=== PATIENT | female | born 1965 | race American Indian/Alaskan Native ===

== ENCOUNTER 2017-11-21 17:58 | Inpatient (IN) | payer SELFPAY ==
[2017-11-21] MEDS ORDERED: ASPIRIN PO ONE (18:46)
[2017-11-21 19:08] LABS: Basophils % (Auto) 0.6 % (0.0-1.8); Eosinophils # (Auto) 0.1 K/mm3 (0.0-0.4); Hematocrit 42.1 % (30.3-42.9); Hemoglobin 14.5 gm/dl (10.1-14.3); Lymphocytes # (Auto) 2.5 K/mm3 (1.2-5.4); Lymphocytes % (Auto) 33.2 % (13.4-35.0); Mean Corpuscular HGB Conc 35 % (30-34); Mean Corpuscular Hemoglobin 34 pg (28-32); Mean Corpuscular Volume 97 fl (79-97); Monocytes # (Auto) 0.5 K/mm3 (0.0-0.8); Monocytes % (Auto) 6.5 % (0.0-7.3); Platelet Count 237 K/mm3 (140-440); Red Blood Count 4.34 M/mm3 (3.65-5.03); Red Cell Distribution Width 12.2 % (13.2-15.2)
[2017-11-21 19:25] LABS: BUN/Creatinine Ratio 22; Blood Urea Nitrogen 11 mg/dL (7-17); Calcium 9.5 mg/dL (8.4-10.2); Hemolysis Index 5
[2017-11-21] MEDS ORDERED: ZOFRAN IV ONE (21:00)
[2017-11-21] MEDS ORDERED: MORPHINE IV ONE (21:00)
[2017-11-21] MEDS ORDERED: NITRO-BID 2% TP ONE (21:00)
--- NOTE | 2017-11-21 21:05 | Emergency Department Report ---
HPI - General Chief Complaint: Chest Pain Time Seen by Provider: 11/21/17 20:51 - HPI HPI: Hart 5 The patient is a 52-year-old female presented with a chief complaint of chest pain. The patient states at work she began having pain in her back then the pain began to radiate down to her shoulder and into her chest described as a pressure in nature. Patient states she developed a headache became diaphoretic and experienced nausea and vomiting. The patient states she has slight shortness of breath with this pain. The patient currently gets her pain is score of 10/10. The patient states her last stress test was over 5 years ago and she's never had a cardiac catheterization Location: [See above] Duration: Onset around noon Quality: Pressure Severity: 10/10 Modifying factors: [see above] Context: [see above] Mode of transportation: [not driving] ED Past Medical Hx - Past Medical History Hx Hypertension: Yes - Surgical History Hx Cholecystectomy: Yes Hx Appendectomy: Yes Additional Surgical History: bowel resection r/t CA, back surgery, - Family History Family history: no significant - Social History Smoking Status: Never Smoker Substance Use Type: Alcohol (wine daily) ED Review of Systems ROS: Stated complaint: CHEST PAIN Other details as noted in HPI Constitutional: diaphoresis Eyes: denies: eye pain ENT: denies: throat pain Respiratory: shortness of breath Cardiovascular: chest pain Endocrine: no symptoms reported Gastrointestinal: nausea, vomiting Genitourinary: denies: dysuria Musculoskeletal: back pain Neurological: headache Physical Exam - Physical Exam Vital Signs: Vital Signs 11/21/17 11/21/17 18:39 20:45 Temperature 97.7 F Pulse Rate 84 76 Respiratory 18 16 Rate Blood Pressure 168/119 Blood Pressure 151/114 [Left] O2 Sat by Pulse 98 98 Oximetry Physical Exam: GENERAL: The patient is well-developed well-nourished female lying on stretcher appearing to be in mild discomfort. [] HEENT: Normocephalic. Atraumatic. Extraocular motions are intact. Patient has moist mucous membranes. NECK: Supple. Tenderness to the base of the neck. No region of fluctuance or lipoma palpated CHEST/LUNGS: Clear to auscultation. There is no respiratory distress noted. HEART/CARDIOVASCULAR: Regular. There is no tachycardia. There is no gallop rub or murmur. ABDOMEN: Abdomen is soft, nontender. Patient has normal bowel sounds. There is no abdominal distention. SKIN: There is no rash. There is no edema. There is no diaphoresis. NEURO: The patient is awake, alert, and oriented. The patient is cooperative. The patient has normal speech MUSCULOSKELETAL: There is tenderness to the C7 spinous process region. There is no evidence of acute injury. ED Course Vital Signs 11/21/17 11/21/17 18:39 20:45 Temperature 97.7 F Pulse Rate 84 76 Respiratory 18 16 Rate Blood Pressure 168/119 Blood Pressure 151/114 [Left] O2 Sat by Pulse 98 98 Oximetry ED Medical Decision Making - Lab Data Result diagrams: 11/21/17 18:54 11/21/17 18:54 Laboratory Tests 11/21/17 11/21/17 18:54 18:54 WBC 7.4 RBC 4.34 Hgb 14.5 H Hct 42.1 MCV 97 MCH 34 H MCHC 35 H RDW 12.2 L Plt Count 237 Lymph % (Auto) 33.2 [place] % (Auto) 6.5 Eos % (Auto) 1.0 Baso % (Auto) 0.6 Lymph # 2.5 [place] # 0.5 Eos # 0.1 Baso # 0.0 Seg Neutrophils % 58.7 Seg Neutrophils # 4.3 Sodium 140 Potassium 2.9 L* Chloride 100.3 Carbon Dioxide 25 Anion Gap 18 BUN 11 Creatinine 0.5 L Estimated GFR > 60 BUN/Creatinine Ratio 22 Glucose 81 Calcium 9.5 Troponin T < 0.010 - EKG Data -: EKG Interpreted by Me EKG shows normal: sinus rhythm Rate: normal - EKG Data When compared to previous EKG there are: previous EKG unavailable Interpretation: other (frequent PVCs) - Radiology Data Radiology results: image reviewed (chest x-ray) interpreted by me: Chest x-ray-no focal infiltrates, no pneumothorax. Possible left lower lobe pulmonary nodule - Differential Diagnosis ACS, pericarditis, GERD, musculoskeletal pain Critical care attestation.: If time is entered above; I have spent that time in minutes in the direct care of this critically ill patient, excluding procedure time. ED Disposition Clinical Impression: Chest pain, Pulmonary nodule Disposition: OP ADMIT IP TO THIS HOSP Is pt being admited?: Yes Does the pt Need Aspirin: Yes Condition: Fair Instructions: Chest Pain (ED) Time of Disposition: 21:40 (hospitalist paged (Dr Howe))
[2017-11-21] MEDS ORDERED: K-DUR PO ONE (21:06)
--- NOTE | 2017-11-21 21:42 | XRay Report ---
FINAL REPORT PROCEDURE: XR CHEST 1V AP TECHNIQUE: Chest radiograph anteroposterior view. CPT 93142 HISTORY: chest pain COMPARISON: No prior studies are available for comparison. FINDINGS: Heart: Normal. Mediastinum/Vessels: Normal. Lungs/Pleural space: No focal infiltrate. Left lower lung granuloma. No pleural effusion.. Bony thorax: Degenerative change of the spine.. Life support devices: None. IMPRESSION: No acute cardiopulmonary abnormality.
[2017-11-21] MEDS ORDERED: PROTONIX PO SCH (23:00)
[2017-11-21] MEDS ORDERED: ZOFRAN IV PRN (23:14)
[2017-11-21] MEDS ORDERED: TYLENOL PO PRN (23:15)
[2017-11-22] MEDS: MORPHINE IV PRN ×3 (00:57→20:32)
[2017-11-22 01:15] LABS: Creatine Kinase MB 1.1 ng/mL (0.0-4.0)
[2017-11-22] MEDS: NITRO-BID 2% TP SCH ×4 (05:06→18:22)
--- NOTE | 2017-11-22 05:28 | History and Physical Report ---
CHIEF COMPLAINT: Chest pain. Other complaint include pain in the cervical area in the back of the neck. HISTORY OF PRESENT ILLNESS: The patient is a 52-year-old female who stated she started having pain in the back of her neck while at work and the pain started radiating to the shoulder area, and later on, the patient developed pressure sensation in the chest. There was also a history of headache, diaphoresis as well as nausea and vomiting. The patient also described history of shortness of breath occurring with pain and rated the pain in the chest area as level of 10/10. PAST MEDICAL HISTORY: Pertinent for hypertension. PAST SURGICAL HISTORY: Pertinent for cholecystectomy, appendectomy, bowel resection, back surgery and . FAMILY HISTORY: Noncontributory. SOCIAL HISTORY: The patient drinks alcohol and does not smoke cigarettes and does not use illicit drugs. MEDICATIONS: The patient's home medications include amlodipine 10 mg by mouth daily, atenolol 50 mg by mouth daily, hydrochlorothiazide 25 mg by mouth daily and the patient is also on omeprazole 20 mg by mouth daily. ALLERGIES: THE PATIENT IS ALLERGIC TO CIPROFLOXACIN. REVIEW OF SYSTEMS: CONSTITUTIONAL: There is no fever, there are no chills, but there is diaphoresis. HEENT: There is headache, but no sore throat. CARDIOVASCULAR: Chest pain is present. No orthopnea. RESPIRATORY: Shortness of breath is present with no cough. GASTROINTESTINAL: There is nausea and vomiting, but no abdominal pain, no diarrhea or constipation. NEUROLOGICAL SYSTEM: There is no numbness, no dizziness, no altered mental status. MUSCULOSKELETAL: Pain in the cervical area at the back of the neck present. There is no joint swelling. DERMATOLOGICAL: There is no skin rash or itching. GENITOURINARY: There is no dysuria, hematuria or flank pain. Rest of system review is normal. PHYSICAL EXAMINATION: GENERAL: At the time of exam, the patient was found to be alert, oriented x 3 and in mild distress due to pain in both the chest and the cervical area. VITAL SIGNS: At the time of initial presentation shows temperature of 97.7 degrees Fahrenheit, pulse of 84, respirations 18, blood pressure 168/119, O2 sat of 98% on room air. HEENT: Pupils to be equal, round, reactive to light and accommodating. Extraocular muscles are intact. NECK: Supple with no JVD or carotid bruit. CARDIOVASCULAR: Showed normal first and second heart sounds with no gallops or murmur. RESPIRATORY SYSTEM: Show good air entry on both sides of the lungs with no abnormal breath sounds. GASTROINTESTINAL SYSTEM: Show abdomen to be full, soft, nontender with no organomegaly or rigidity. NEUROLOGIC: Shows no focal deficit. MUSCULOSKELETAL SYSTEM: Showed tenderness in the cervical area and adjacent right shoulder area with no joint swelling noted. DERMATOLOGICAL SYSTEM: Show no skin rash. GENITOURINARY: Show no costovertebral angle tenderness. PERTINENT LABORATORY AND IMAGING STUDIES: The patient had chest x-ray done that shows no acute cardiopulmonary lesion. The patient's lab results shows CBC with normal white count, elevated hemoglobin of 14.5, normal hematocrit and normal MCV with unremarkable CBC differential. The patient's chemistry showed low potassium level of 2.9 with the rest of chemistry being unremarkable and troponin level was normal. DIAGNOSES: 1. Chest pain, rule out myocardial infarction. 2. Hypokalemia, low potassium. 3. Cervicalgia. PLAN OFACTION: 1. The patient will be admitted to telemetry. 2. The patient will remain n.p.o. and we will have Lexiscan stress test this morning. 3. The patient will have cardiac enzyme involving troponin, total CK and CK-MB checked q. 6 hours x 2 more levels. 4. The patient will have CT scan without contrast of the cervical area at the back of the neck this morning. 5. The patient will be on Tylenol 650 mg by mouth every 4 hours for fever and headache and will be on IV morphine 2 mg every 3 hours as needed for pain. 6. The patient will be on nitro paste half inch to anterior chest wall q.i.d. and will also be on IV Zofran 4 mg every 8 hours as needed for nausea and vomiting. The patient will be on aspirin 325 mg by mouth daily and DVT prophylaxis will be through heparin 5000 units subcutaneous q. 12 hours. The patient will be on oxygen by nasal cannula at 2 liter per minute and will be on Tylenol 650 mg by mouth every 4 hours for fever and headache. JOB# [id number] OCN/NTS
[2017-11-22 06:30] LABS: Creatine Kinase MB 1.1 ng/mL (0.0-4.0)
[2017-11-22] MEDS: NORVASC PO SCH (09:09)
--- NOTE | 2017-11-22 09:12 | Cat Scan Report ---
FINAL REPORT EXAM: CT CERVICAL SPINE WO CON HISTORY: PAIN WITH TENDERNESS CERVICAL AREA TECHNIQUE: A noncontrast CT of the cervical spine was performed. Coronal and sagittal reformatted images were obtained. PRIORS: None. FINDINGS: Vertebral body heights and alignment are maintained. There is no evidence of acute fracture. There is C5-6 moderate intervertebral narrowing. There is moderate endplate spurring. Disc osteophyte complex causes mild spinal stenosis and left neuroforaminal narrowing. IMPRESSION: Moderate degenerative disc disease at C5-6 with disc osteophyte complex causing mild spinal stenosis and mild left neuroforaminal narrowing. There is no evidence of cervical spine fracture or subluxation.
[2017-11-22] MEDS: TENORMIN PO SCH (09:53)
[2017-11-22] MEDS ORDERED: HCTZ PO SCH (10:00)
[2017-11-22] MEDS ORDERED: NORCO 5/325 PO PRN (11:00)
[2017-11-22] MEDS ORDERED: LEXISCAN IV ONE ×2 (12:05→12:09)
[2017-11-22] MEDS: PROTONIX PO SCH ×2 (14:30→18:20)
[2017-11-22] MEDS: HEPARIN SUB-Q SCH ×2 (15:01→21:26)
[2017-11-22] MEDS: ASPIRIN PO SCH (15:02)
--- NOTE | 2017-11-22 16:33 | Progress Note ---
Assessment and Plan Assessment and plan: Chest pain, rule out ACS -Serial troponin levels negative -Stress test report pending Cervical pain -Cervical CT scan showed degenerative disc disease C5 to C6 -Continue pain mgx Hypokalemia -Improved after repletion, will monitor -Magnesium level normal Disposition: For discharge in a.m. if stress test is negative History Interval history: Patient has no new complaints. She denies current chest pain or shortness of breath. Hospitalist Physical - Constitutional Vitals: Temp Pulse Resp BP Pulse Ox 97 F L 77 18 128/97 96 11/22/17 14:42 11/22/17 15:39 11/22/17 14:42 11/22/17 15:10 11/22/17 08:51 General appearance: Present: no acute distress - EENT Eyes: Present: PERRL, EOM intact ENT: hearing intact, clear oral mucosa - Neck Neck: Present: supple - Respiratory Respiratory effort: normal Respiratory: bilateral: CTA - Cardiovascular Rhythm: regular Heart Sounds: Present: S1 & S2 - Extremities Extremities: No edema - Abdominal General gastrointestinal: soft, non-tender, normal bowel sounds - Neurologic Neurologic: CNII-XII intact Results - Labs CBC & Chem 7: 11/21/17 18:54 11/22/17 04:58 Labs: Laboratory Last Values WBC 7.4 K/mm3 (4.5-11.0) 11/21/17 18:54 RBC 4.34 M/mm3 (3.65-5.03) 11/21/17 18:54 Hgb 14.5 gm/dl (10.1-14.3) H 11/21/17 18:54 Hct 42.1 % (30.3-42.9) 11/21/17 18:54 MCV 97 fl (79-97) 11/21/17 18:54 MCH 34 pg (28-32) H 11/21/17 18:54 MCHC 35 % (30-34) H 11/21/17 18:54 RDW 12.2 % (13.2-15.2) L 11/21/17 18:54 Plt Count 237 K/mm3 (140-440) 11/21/17 18:54 Lymph % (Auto) 33.2 % (13.4-35.0) 11/21/17 18:54 [place] % (Auto) 6.5 % (0.0-7.3) 11/21/17 18:54 Eos % (Auto) 1.0 % (0.0-4.3) 11/21/17 18:54 Baso % (Auto) 0.6 % (0.0-1.8) 11/21/17 18:54 Lymph # 2.5 K/mm3 (1.2-5.4) 11/21/17 18:54 [place] # 0.5 K/mm3 (0.0-0.8) 11/21/17 18:54 Eos # 0.1 K/mm3 (0.0-0.4) 11/21/17 18:54 Baso # 0.0 K/mm3 (0.0-0.1) 11/21/17 18:54 Seg Neutrophils % 58.7 % (40.0-70.0) 11/21/17 18:54 Seg Neutrophils # 4.3 K/mm3 (1.8-7.7) 11/21/17 18:54 Sodium 140 mmol/L (137-145) 11/21/17 18:54 Potassium 3.6 mmol/L (3.6-5.0) D 11/22/17 04:58 Chloride 100.3 mmol/L (98-107) 11/21/17 18:54 Carbon Dioxide 25 mmol/L (22-30) 11/21/17 18:54 Anion Gap 18 mmol/L 11/21/17 18:54 BUN 11 mg/dL (7-17) 11/21/17 18:54 Creatinine 0.5 mg/dL (0.7-1.2) L 11/21/17 18:54 Estimated GFR > 60 ml/min 11/21/17 18:54 BUN/Creatinine Ratio 22 % 11/21/17 18:54 Glucose 81 mg/dL (65-100) 11/21/17 18:54 Calcium 9.5 mg/dL (8.4-10.2) 11/21/17 18:54 Magnesium 1.80 mg/dL (1.7-2.3) 11/22/17 04:58 Total Creatine Kinase 104 units/L (30-135) 11/22/17 04:58 CK-MB (CK-2) 1.1 ng/mL (0.0-4.0) 11/22/17 04:58 CK-MB (CK-2) Rel Index 1.0 (0-4) 11/22/17 04:58 Troponin T < 0.010 ng/mL (0.00-0.029) 11/22/17 04:58
[2017-11-22] MEDS ORDERED: K-DUR PO ONE (17:00)
--- NOTE | 2017-11-23 04:58 | Treadmill Report ---
THALLIUM STRESS TEST LEFT VENTRICLE: Left ventricular chamber size is within normal spread. Perfusion study demonstrates normal apical thinning, otherwise, homogeneous uptake of tracer in all segments, no significant perfusion defects identified. Gated analysis demonstrates normal left ventricular systolic function, ejection fraction of 70%. CONCLUSION: No demonstrable ischemia on thallium perfusion imaging. Negative study. JOB# [id number] CA/NTS
[2017-11-23 05:52] LABS: BUN/Creatinine Ratio 22; Blood Urea Nitrogen 11 mg/dL (7-17); Calcium 9.1 mg/dL (8.4-10.2); Hemolysis Index 5
[2017-11-23] MEDS: NITRO-BID 2% TP SCH (06:45)
[2017-11-23] MEDS: PROTONIX PO SCH (09:40)
[2017-11-23] MEDS: ASPIRIN PO SCH (09:40)
[2017-11-23] MEDS: NORVASC PO SCH (09:40)
[2017-11-23] MEDS: HEPARIN SUB-Q SCH (09:41)
[2017-11-23] MEDS: TENORMIN PO SCH (09:41)
--- NOTE | 2017-11-23 11:28 | Discharge Summary ---
Providers - Providers Date of Admission: 11/21/17 23:08 Date of discharge: 11/23/17 Attending physician: YUMI ARMAS Primary care physician: [facility] [facility] Hospitalization Condition: Fair Pertinent studies: Chest XR CT neck Stress thallium test Hospital course: Admitted with uncontrolled HTN, acute on chronic neck pain 2/2 DJD, chest pain ( musculoskeletal). BP meds were restarted. pt admitted chronic noncompliance with her BP meds Stress test negative CT Neck: showed moderate DJD changes CXR negative Hypokalemia, resolved. D/w pt in details about her results, discharge and follow up plans Disposition: DC-01 TO HOME OR SELFCARE - Discharge Diagnoses (1) Musculoskeletal chest pain Status: Acute Comment: resolved . (2) Degenerative joint disease Status: Acute Comment: outpatient follow up with her Orthopedic surgeon (3) HTN (hypertension) Status: Acute Comment: prescriptions given counseled med compliance (4) Medically noncompliant Status: Acute Comment: counseled need for medication compliance Core Measure Documentation - Palliative Care Palliative Care/ Comfort Measures: Not Applicable - Core Measures Any of the following diagnoses?: none - VTE Discharge Requirements Deep Vein Thrombosis/Pulmonary Embolism Present on Admission: No Has pt received <5 days of overlap therapy or INR<2.0: No Anticoagulant overlap therapy prescribed at discharge: No Contraindication No Overlap Therapy order at DC: Patient Noncompliance - Acute ID Discharge Requirements Aspirin at discharge: No Reason for no aspirin on DC: Medical contraindication KAILEE/ARB for LVSD if EF <40%: Not Applicable Beta renetta at discharge: No Reason for no beta renetta on DC: Medical contraindication Statin for LDL = or >100 mg/dl on DC: Not Applicable - Heart Failure Discharge Requirements KAILEE/ARB for LVSD if EF <40%: Not Applicable Beta renetta at discharge: No Reason for no beta renetta on DC: Medical contraindication - Stroke Discharge Requirements Statin for LDL = or >70 mg/dl on DC: Not Applicable Anticoag for atrial fib/atrial flutter: Not Applicable Antithrombotic for ischemic stroke: No Reason for no antithrombotic on DC: Not Indicated Exam - Constitutional Vitals: Temp Pulse Resp BP Pulse Ox 99.5 F 65 16 123/89 97 11/23/17 08:02 11/23/17 08:02 11/23/17 08:02 11/23/17 08:02 11/23/17 09:23 General appearance: Present: no acute distress, well-nourished, obese - EENT Eyes: Present: PERRL, EOM intact ENT: hearing intact, clear oral mucosa - Neck Neck: Present: supple, normal ROM, other Details: muscle spasms - Respiratory Respiratory: bilateral: CTA, negative: rales, rhonchi, wheezing - Cardiovascular Rhythm: regular Heart Sounds: Present: S1 & S2 - Abdominal General gastrointestinal: Present: soft, non-tender, non-distended, normal bowel sounds Female genitourinary: Present: deferred - Rectal Rectal Exam: deferred - Integumentary Integumentary: Present: clear, warm, dry - Musculoskeletal Musculoskeletal: strength equal bilaterally - Psychiatric Psychiatric: appropriate mood/affect, intact judgment & insight, memory intact, cooperative - Neurologic Neurologic: CNII-XII intact, moves all extremities, gait normal - Allied Health Allied health notes reviewed: nursing, social work, case management Plan Diet: low fat, low cholesterol, low salt Special Instructions: record daily weights, record daily BP diary Follow up with: PRIMARY CARE,MD [Primary Care Provider] - 7 Days Forms: Work/School Release Form Prescriptions: amLODIPine [Norvasc] 10 mg PO DAILY #30 tablet Atenolol [Tenormin] 50 mg PO DAILY 30 Days #30 tablet hydroCHLOROthiazide [Hydrochlorothiazide] 0.5 mg PO QDAY #30 tablet Omeprazole 20 mg PO AC 30 Days #30 tab
[2017-11-23 13:01] VITALS: BP 125/90
== END 2017-11-23 18:56 | disposition home or self-care (01) | DRG 552 ==
LOC: ED 17:58 → 4A 23:08
PROVIDERS: ADMIT Internal Medicine; ATTEND Family Medicine
DX: M50.322 Other cervical disc degeneration at C5-C6 level (principal); R91.1 Solitary pulmonary nodule; R07.89 Other chest pain; E87.6 Hypokalemia; Z90.49 Acquired absence of other specified parts of digestive tract; Z88.1 Allergy status to other antibiotic agents; Z91.19 Patient's noncompliance with other medical treatment and regimen
CPT/HCPCS: 36415; 71045; 72125; 78452; 80048; 82550; 82553; 83735; 84132; 84484; 85025; 93005; 93010; 93017; 96372; 96374; 96375; A9502; J1644; J2270; J2405; J2785

== ENCOUNTER 2019-10-02 18:21 | Emergency (ER) | payer OTHER ==
[2019-10-02 18:49] VITALS: BP 122/99
[2019-10-02] MEDS ORDERED: FLUORESCEIN 1 MG STRIP OP ONE (18:58)
[2019-10-02] MEDS ORDERED: TOBRADEX 0.3-0.1% OPHTH SUSP 2.5ML OU ONE (18:59)
--- NOTE | 2019-10-02 19:00 | Event Note ---
ED Screening Note ED Screening Note: wears contact lenses sensation fb in b eyes no trauma globe intact This initial assessment/diagnostic orders/clinical plan/treatment(s) is/are subject to change based on patients health status, clinical progression and re- assessment by fellow clinical providers in the ED. Further treatment and workup at subsequent clinical providers discretion. Patient/guardian urged not to elope from the ED as their condition may be serious if not clinically assessed and managed. Initial orders include: acc for stain
[2019-10-02] MEDS ORDERED: IBUPROFEN 600 MG TAB PO ONE (20:10)
[2019-10-02] MEDS ORDERED: TETRACAINE 0.5% OPHTH SOLN 4ML OU PRN (20:10)
--- NOTE | 2019-10-02 20:50 | Emergency Department Report ---
ED Eye Problem HPI - General Chief complaint: Eye Problems Stated complaint: EYE PAIN Time Seen by Provider: 10/02/19 18:58 Source: patient Mode of arrival: Ambulatory Limitations: No Limitations - History of Present Illness Initial comments: Patient is a 54-year-old -Portuguese female with a history of hypertension who presents to the ED with acute onset persistent severe bilateral eye pain with purulent discharge, matting and erythematous conjunctival for the last 2 days. Patient states that in the last 12 hours the pain, matting and discharge has worsened. Patient also complains of frontal sinus pressure and headache. Patient denies vision loss, dizziness, syncope, chest pain, shortness of breath, fever, chills, nasal and sinus congestion, sore throat, cough, neck pain, traumatic injury or seizures and syncope. MD chief complaint: eye pain (bilateral), eye redness (bilateral) -: Sudden, days(s) (2) Onset Description: sudden Location: both eyes Place: home If Injury: none Eye Symptoms: burning, redness, pain, discharge, photophobia Severity: severe Severity scale (0 -10): 7 If Pain, Quality: sharp, burning, aching Consistency: constant Associated Symptoms: none, headache. denies: neck pain, nausea/vomiting, cough, rhinorrhea, fever, shortness of breath, other Treatments Prior to Arrival: none - Related Data Patient Tetanus UTD: Yes Previous Rx's Medication Instructions Recorded Last Taken Type Omeprazole 20 mg PO AC 30 Days #30 tab.rap. 11/23/17 Unknown Rx amLODIPine 10 mg PO DAILY #30 tablet 11/23/17 Unknown Rx atenoloL [Tenormin] 50 mg PO DAILY 30 Days #30 tablet 11/23/17 Unknown Rx hydroCHLOROthiazide 0.5 mg PO QDAY #30 tablet 11/23/17 Unknown Rx [Hydrochlorothiazide] Ibuprofen [Motrin] 800 mg PO Q8HR PRN #24 tablet 10/02/19 Unknown Rx Tobramycin/Dexamethasone [Tobradex 1 - 2 drop OP Q4HR #10 ml 10/02/19 Unknown Rx Eye Drops 0.3/0.1%] Allergies Allergy/AdvReac Type Severity Reaction Status Date / Time ciprofloxacin [From Cipro] Allergy Unknown Verified 11/21/17 18:46 ED Review of Systems ROS: Stated complaint: EYE PAIN Other details as noted in HPI Constitutional: denies: chills, fever Eyes: eye pain (bilateral), eye discharge (bilateral). denies: vision change ENT: denies: ear pain, throat pain Respiratory: denies: cough, shortness of breath, wheezing Cardiovascular: denies: chest pain, palpitations Endocrine: no symptoms reported Gastrointestinal: denies: abdominal pain, nausea, diarrhea Genitourinary: denies: urgency, dysuria, discharge Musculoskeletal: denies: back pain, joint swelling, arthralgia Skin: denies: rash, lesions Neurological: headache. denies: weakness, paresthesias Psychiatric: denies: anxiety, depression Hematological/Lymphatic: denies: easy bleeding, easy bruising ED Past Medical Hx - Past Medical History Hx Hypertension: Yes - Surgical History Hx Cholecystectomy: Yes Hx Appendectomy: Yes Additional Surgical History: bowel resection r/t CA, back surgery, - Social History Smoking Status: Never Smoker - Medications Home Medications: Home Medications Medication Instructions Recorded Confirmed Last Taken Type Omeprazole 20 mg PO AC 30 Days #30 tab.rap.dr 11/23/17 Unknown Rx amLODIPine 10 mg PO DAILY #30 tablet 11/23/17 Unknown Rx atenoloL [Tenormin] 50 mg PO DAILY 30 Days #30 tablet 11/23/17 Unknown Rx hydroCHLOROthiazide 0.5 mg PO QDAY #30 tablet 11/23/17 Unknown Rx [Hydrochlorothiazide] Ibuprofen [Motrin] 800 mg PO Q8HR PRN #24 tablet 10/02/19 Unknown Rx Tobramycin/Dexamethasone [Tobradex 1 - 2 drop OP Q4HR #10 ml 10/02/19 Unknown Rx Eye Drops 0.3/0.1%] ED Physical Exam - General Limitations: No Limitations General appearance: alert, in no apparent distress - Head Head exam: Present: atraumatic, normocephalic, normal inspection - Eye Eye exam: Present: normal appearance, PERRL, EOMI, other (Bilateral conjunctival erythema with purulent discharge and photophobia) Pupils: Present: normal accommodation - ENT ENT exam: Present: normal exam, normal orophraynx, mucous membranes moist, TM's normal bilaterally, normal external ear exam - Neck Neck exam: Present: normal inspection, full ROM - Respiratory Respiratory exam: Present: normal lung sounds bilaterally. Absent: respiratory distress, wheezes, rales, rhonchi, chest wall tenderness, accessory muscle use, prolonged expiratory - Cardiovascular Cardiovascular Exam: Present: normal rhythm, bradycardia, normal heart sounds. Absent: systolic murmur, diastolic murmur, rubs, gallop - GI/Abdominal GI/Abdominal exam: Present: soft, normal bowel sounds. Absent: distended, tenderness, guarding, rebound, hyperactive bowel sounds, hypoactive bowel sounds - Extremities Exam Extremities exam: Present: normal inspection, full ROM, normal capillary refill - Back Exam Back exam: Present: normal inspection, full ROM. Absent: tenderness, CVA tenderness (R), muscle spasm, paraspinal tenderness, vertebral tenderness - Neurological Exam Neurological exam: Present: alert, oriented X3, CN II-XII intact, normal gait, reflexes normal - Psychiatric Psychiatric exam: Present: normal affect, normal mood. Absent: anxious, flat affect, homicidal ideation, suicidal ideation - Skin Skin exam: Present: warm, dry, intact, normal color. Absent: rash ED Course Vital Signs 10/02/19 18:47 Temperature 98.3 F Pulse Rate 53 L Respiratory 16 Rate Blood Pressure 122/99 O2 Sat by Pulse 90 Oximetry ED Medical Decision Making - Medical Decision Making This is a 54-year-old -Portuguese female with a history of hypertension who presents to the ED with acute onset persistent severe bilateral eye pain with purulent discharge, matting and erythematous conjunctival for the last 2 days. Patient states that in the last 12 hours the pain, matting and discharge has worsened. Patient also complains of frontal sinus pressure and headache. In the ED, patient is alert and oriented x3 and is not in distress and appears to be in pain. Patient was treated for pain in the ED and received antibiotic eyedrops after treating the pain. Patient was discharged home on pain medications and antibiotics eye ointment prescriptions and was advised to follow-up with her primary care physician in 5 to 7 days for reevaluation or return to the ED immediately if symptoms get worse. - Differential Diagnosis Bacterial conjunctivitis; Viral conjunctivitis; Keratitis; eye injury Critical care attestation.: If time is entered above; I have spent that time in minutes in the direct care of this critically ill patient, excluding procedure time. ED Disposition Clinical Impression: Acute bacterial conjunctivitis of both eyes, Acute eye pain Disposition: TO HOME OR SELFCARE Is pt being admited?: No Does the pt Need Aspirin: No Condition: Stable Instructions: Conjunctivitis (ED) Additional Instructions: Apply the medication to the affected eyes as advised, take medication by mouth as needed for pain. Return to the ED immediately if symptoms get worse. Otherwise follow-up with your primary care physician in 5 to 7 days for reevaluation. Prescriptions: Ibuprofen [Motrin] 800 mg PO Q8HR PRN #24 tablet PRN Reason: Pain , Severe (7-10) Tobramycin/Dexamethasone [Tobradex Eye Drops 0.3/0.1%] 1 - 2 drop OP Q4HR #10 ml Referrals: [facility] [Provider Group] - 3-5 Days Forms: Work/School Release Form(ED) Time of Disposition: 20:51 Print Language: TURKISH
== END 2019-10-02 21:10 | disposition home or self-care (01) ==
LOC: ED 18:21
DX: H10.33 Unspecified acute conjunctivitis, bilateral (principal); H57.13 Ocular pain, bilateral; I10 Essential (primary) hypertension; Z90.49 Acquired absence of other specified parts of digestive tract; Z98.890 Other specified postprocedural states; Z79.1 Long term (current) use of non-steroidal anti-inflammatories (NSAID); Z79.899 Other long term (current) drug therapy; Z88.1 Allergy status to other antibiotic agents
CPT/HCPCS: 99282

== ENCOUNTER 2021-10-09 16:35 | Emergency (ER) | payer SELFPAY ==
--- NOTE | 2021-10-09 19:57 | XRay Report ---
LEFT KNEE, 3 VIEWS INDICATION / CLINICAL INFORMATION: LEFT KNEE PAIN AND SWELLING. COMPARISON: None available. FINDINGS: No fracture or malalignment is noted. There is small suprapatellar joint effusion present. Mild degenerative changes are seen in all 3 joint compartments. IMPRESSION: 1. Small suprapatellar joint effusion. 2. Mild degenerative change. Signer Name: Johana Mercado MD Signed: 10/09/2021 7:53 PM Workstation Name: [id number]
--- NOTE | 2021-10-10 04:05 | Emergency Department Report ---
ED Lower Extremity HPI - General Chief Complaint: Extremity Problem,Nontraumatic Stated Complaint: LT KNEE SWOLLEN Time Seen by Provider: 10/10/21 00:48 Source: patient Mode of arrival: Ambulatory Limitations: No Limitations - History of Present Illness -: Gradual - Related Data Previous Rx's Medication Instructions Recorded Last Taken Type Omeprazole 20 mg PO AC 30 Days #30 tab.rap. 11/23/17 Unknown Rx amLODIPine 10 mg PO DAILY #30 tablet 11/23/17 Unknown Rx atenoloL [Tenormin] 50 mg PO DAILY 30 Days #30 tablet 11/23/17 Unknown Rx hydroCHLOROthiazide 0.5 mg PO QDAY #30 tablet 11/23/17 Unknown Rx [Hydrochlorothiazide] Ibuprofen [Motrin] 800 mg PO Q8HR PRN #24 tablet 10/02/19 Unknown Rx Tobramycin/Dexamethasone [Tobradex 1 - 2 drop OP Q4HR #10 ml 10/02/19 Unknown Rx Eye Drops 0.3/0.1%] Meloxicam [Mobic] 7.5 mg PO QDAY #10 tablet 10/10/21 Unknown Rx predniSONE [Deltasone] 20 mg PO QDAY #7 tab 10/10/21 Unknown Rx Allergies Allergy/AdvReac Type Severity Reaction Status Date / Time ciprofloxacin [From Cipro] Allergy Unknown Verified 11/21/17 18:46 ED Review of Systems ROS: Stated complaint: LT KNEE SWOLLEN Other details as noted in HPI ED Past Medical Hx - Past Medical History Hx Hypertension: Yes - Surgical History Hx Cholecystectomy: Yes Hx Appendectomy: Yes Additional Surgical History: bowel resection r/t CA, back surgery, - Social History Smoking Status: Never Smoker - Medications Home Medications: Home Medications Medication Instructions Recorded Confirmed Last Taken Type Omeprazole 20 mg PO AC 30 Days #30 tab.rap. 11/23/17 Unknown Rx amLODIPine 10 mg PO DAILY #30 tablet 11/23/17 Unknown Rx atenoloL [Tenormin] 50 mg PO DAILY 30 Days #30 tablet 11/23/17 Unknown Rx hydroCHLOROthiazide 0.5 mg PO QDAY #30 tablet 11/23/17 Unknown Rx [Hydrochlorothiazide] Ibuprofen [Motrin] 800 mg PO Q8HR PRN #24 tablet 10/02/19 Unknown Rx Tobramycin/Dexamethasone [Tobradex 1 - 2 drop OP Q4HR #10 ml 10/02/19 Unknown Rx Eye Drops 0.3/0.1%] Meloxicam [Mobic] 7.5 mg PO QDAY #10 tablet 10/10/21 Unknown Rx predniSONE [Deltasone] 20 mg PO QDAY #7 tab 10/10/21 Unknown Rx ED Physical Exam - General Limitations: No Limitations ED Course Vital Signs 10/09/21 19:21 Temperature 98.2 F Pulse Rate 87 Respiratory 18 Rate Blood Pressure 164/112 O2 Sat by Pulse 99 Oximetry Critical care attestation.: If time is entered above; I have spent that time in minutes in the direct care of this critically ill patient, excluding procedure time. ED Disposition Disposition: HOME / SELF CARE / HOMELESS Condition: Stable Instructions: Osteoarthritis, Preventing Osteoarthritis, Adult, Knee Injection, Bursitis, How to Use a Knee Brace Prescriptions: predniSONE [Deltasone] 20 mg PO QDAY #7 tab Meloxicam [Mobic] 7.5 mg PO QDAY #10 tablet Referrals: [facility] [Provider Group] - 3-5 Days
[2021-10-10 04:40] VITALS: BP 157/96
== END 2021-10-10 04:33 | disposition home or self-care (01) ==
LOC: ED 16:35
DX: M25.462 Effusion, left knee (principal); I10 Essential (primary) hypertension; Z91.09 Other allergy status, other than to drugs and biological substances
CPT/HCPCS: 99283